=== PATIENT | male | born 1970 | race Two or more races ===

== ENCOUNTER 2022-01-17 09:31 | Emergency (ER) | payer MEDICAID, SELFPAY ==
[~2022-01-17] VITALS: Ht 188 cm; Wt 95.0 kg
[2022-01-17 10:42] VITALS: BP 132/80
[2022-01-17] MEDS ORDERED: HYDROCODONE/ACETAMINOPHEN 5/325MG TABLET PO ONE (10:45)
[2022-01-17] MEDS ORDERED: KETOROLAC 60MG/2ML VIAL IM ONE (11:00)
[2022-01-17] MEDS ORDERED: HYDR-4001 MT (11:24)
[2022-01-17] MEDS ORDERED: SKEL800 MT (11:24)
[2022-01-17] MEDS ORDERED: IBUP-2029 MT (11:24)
== END 2022-01-17 11:48 | disposition home or self-care (01) ==
LOC: ER 09:31
DX: M47.816 Spondylosis without myelopathy or radiculopathy, lumbar region (principal)
CPT/HCPCS: 72100; 99283

== ENCOUNTER 2022-03-06 18:38 | Emergency (ER) | payer MEDICAID ==
[~2022-03-06] VITALS: Ht 188 cm; Wt 94.8 kg
[~2022-03-06 18:38] MED LIST: HYDR-4001 MT; IBUP-2029 MT; SKEL800 MT
[2022-03-06] MEDS ORDERED: ACETAMINOPHEN 325MG TABLET PO ONE (21:15)
[2022-03-06] MEDS ORDERED: IBUPROFEN 400MG TABLET PO ONE (21:15)
[2022-03-06] MEDS ORDERED: LIDO700A30 TP (22:39)
[2022-03-06] MEDS ORDERED: METH-653 MT (22:39)
[2022-03-06] MEDS ORDERED: KETOROLAC 60MG/2ML VIAL IM ONE (22:45)
[2022-03-06] MEDS ORDERED: METHOCARBAMOL 750MG TABLET PO SCH (22:45)
[2022-03-07 04:40] VITALS: BP 129/80
== END 2022-03-06 23:27 | disposition left against medical advice (07) ==
LOC: ER 18:38
DX: M54.50 Low back pain, unspecified (principal); Z98.890 Other specified postprocedural states
CPT/HCPCS: 96372; 99284; J1885